=== PATIENT | male | born 1955 ===

== ENCOUNTER 2021-05-30 13:18 | Emergency (ER) | payer SELFPAY ==
--- NOTE | 2021-05-30 14:29 | Emergency Department Report ---
ED Abdominal Pain HPI - General Chief Complaint: Medical Clearance Stated Complaint: COLOSTMY BAG IRRITATION Time Seen by Provider: 05/30/21 14:14 Source: EMS Mode of arrival: Stretcher Limitations: No Limitations - History of Present Illness Initial Comments: 65-year-old male with past medical history of colorectal cancer status post resection with colostomy placement, hypertension, and diabetes presents to the hospital to have his colostomy examined. Patient is visiting here from [place] scheduled to go home tomorrow. He was stuck in an elevator rescue by the fire department. They pulled him through an opening between the elevator and the floor causing him to rub his abdomen and ostomy site while being pulled out of the elevator. Patient has some discomfort to the site which is currently mild. Good output reported. No bleeding reported. Patient just wanted to get the site checked Severity scale (0 -10): 0 - Related Data Allergies Allergy/AdvReac Type Severity Reaction Status Date / Time aspirin Allergy Severe Hives Verified 05/30/21 14:27 ED Review of Systems ROS: Stated complaint: COLOSTMY BAG IRRITATION Other details as noted in HPI Comment: All other systems reviewed and negative ED Physical Exam - General Limitations: No Limitations - Other Other exam information: General: No acute distress Head: Atraumatic Eyes: normal appearance ENT: Moist mucous membranes Neck: Normal appearance, no midline tenderness Chest: Clear to auscultation bilaterally CV: Regular rate and rhythm Abdomen: Soft, normal bowel sounds, nontender, nondistended, no rebound or guarding. Left lower quadrant ostomy with pink mucosa, stool output without gross blood. Back: Normal inspection Extremity: Normal inspection, full range of motion Neuro: Alert O x 3, no facial asymmetry, speech clear, no gross motor sensory deficit Psych: Appropriate behavior Skin: No rash ED Course Vital Signs 05/30/21 05/30/21 13:22 14:19 Temperature 98.3 F 98.1 F Pulse Rate 86 78 Respiratory 18 18 Rate Blood Pressure 120/79 136/82 [Left] O2 Sat by Pulse 99 98 Oximetry ED Medical Decision Making - Medical Decision Making 65-year-old male presents to the hospital after concerns about his ostomy after after rubbing the area while being extricated from the elevator. No acute abnormality noted with good output and pink mucosa. Patient discharged to follow-up with his doctors in [place] Critical Care Time: No Critical care attestation.: If time is entered above; I have spent that time in minutes in the direct care of this critically ill patient, excluding procedure time. ED Disposition Clinical Impression: Colostomy present Disposition: 01 HOME / SELF CARE / HOMELESS Is pt being admited?: No Does the pt Need Aspirin: No Condition: Stable Instructions: Colostomy Home Guide, Adult Additional Instructions: Continue to monitor your colostomy output. Return if symptoms worsen otherwise follow-up with your colorectal surgeon and primary care doctor. Referrals: your, doctor [Other] - 3-5 Days Time of Disposition: 14:31
[2021-05-30 14:48] VITALS: BP 130/80
== END 2021-05-30 14:45 | disposition home or self-care (01) ==
LOC: ED 13:18
DX: Z93.3 Colostomy status (principal)
CPT/HCPCS: 99283